=== PATIENT | male | born 1990 | race Caucasian/White ===

== ENCOUNTER 2023-08-24 09:59 | Emergency (ER) | payer OTHER, SELFPAY ==
--- NOTE | ~2023-08-24 | XR_ITS ---
EXAMINATION: XR CHEST 2 VIEWS CLINICAL INFORMATION: Chest pain. COMPARISON: None. TECHNIQUE: Frontal and lateral views of the chest were obtained. FINDINGS: The heart, great vessels, pulmonary vasculature and mediastinum are normal. The lungs show no focal infiltrate, effusion or pneumothorax. There is no acute osseous abnormality. XR/XR chest 2V IMPRESSION: No active cardiopulmonary disease.
[2023-08-24 10:07] VITALS: BP 149/95; BP 163/109; PULSE 70; PULSE 78; RESP 16; TEMP 36.6; O2SAT 95; BMI 45.2
--- NOTE | 2023-08-24 10:44 | ECG_ITS ---
Test Reason : CHEST PAIN Blood Pressure : / mmHG Vent. Rate : 060 BPM Atrial Rate : 060 BPM P-R Int : 186 ms QRS Dur : 100 ms QT Int : 432 ms P-R-T Axes : 021 -27 -30 degrees QTc Int : 432 ms Normal sinus rhythm Minimal voltage criteria for LVH, may be normal variant ( R in aVL ) T wave abnormality, consider anterolateral ischemia Abnormal ECG No previous ECGs available Referred By: Tanja Sandoval Electronically Signed By:DAYANARA HUFF MD
--- NOTE | 2023-08-24 10:47 | ED_ITS ---
HPI - Chest Pain General Chief Complaint: Chest Pain Stated Complaint: CP W/INSPIRATION THIS AM & SEVERAL X'S FOR MONTHS Time Seen by Provider: 08/24/23 10:32 Source: patient and RN notes reviewed Mode of arrival: ambulatory Limitations: no limitations History of Present Illness HPI narrative: This is a 33-year-old male, with a past medical history of hypertension, presenting to the emergency department via EMS from [facility] with complaints of 1 episode of chest pain which occurred this morning. Patient states that he did not sleep well overnight as his roommate was up during the night using the restroom. Patient states that he got out of bed and headed to the kitchen. He states that he was feeling overwhelmed as he is stressed about not being able to sleep over the last several days due to his roommate keeping him up at night and suddenly developed midsternal chest pain. He states that he was feeling a dry mouth and headache and mildly short of breath. Patient states that he laid down and then developed pain radiating into his right shoulder. Patient states that this episode of chest pain resolved after 1 hour. He states that he was given medication at [facility] which he believes helped his symptoms. He denies knowing what medication they had given him. He is feeling well now. Denies any recent travel, hospitalizations, surgeries, or swelling to his lower extremities. Denies history of blood clots. Denies cardiac medical problems, denies any family medical cardiac problems. Patient states that he has a history of similar chest pain over the last year states he notices this chest pain occurring when he is feeling overwhelmed. No other complaints or concerns at this time. MD complaint: chest pain Onset (ago): hour(s) Timing of current episode: episodic Prior episodes: Yes Pain location: substernal Pain radiation: right shoulder Quality: aching Relieving factors: medication-other (Unsure of what medication was given) Risk Factors Coronary artery disease risk factors: hypertension Related Data Allergies Allergy/AdvReac Type Severity Reaction Status Date / Time No Known Allergies Allergy Unverified 07/13/20 18:53 [No Known Allergies*] Review of Systems 2 Review of Systems: Yes all other systems are reviewed and are negative Constitutional: Constitutional: Reports as per [facility] Social History Social History Smoked in Last 30 Days: No Use of substances other than those prescribed or required for medical reasons: Yes Substance Use Type: Marijuana Advance Directives: No Advance Directives Information Provided: No Physical Exam 2 Vital Signs: Vital Signs: Last Vital Signs Temp 98.5 F 08/24/23 15:20 Pulse 62 08/24/23 15:20 Resp 12 08/24/23 15:20 BP 132/94 H 08/24/23 15:20 Pulse Ox 95 08/24/23 15:20 O2 Del Method Room Air 08/24/23 15:20 BMI result Body Mass Index 45.2 Const: General: cooperative, comfortable and no acute distress O rientation/consciousness: patient oriented x3 Limitations: no limitations HEENT: Head: Yes normal to inspection, Yes normocephalic and Yes atraumatic Ears: hearing grossly normal bilaterally General nose exam: Normal external nose present Face and sinus: Yes normal facial exam Mouth: Normal oral and palatal mucosa present, oropharynx normal and moist mucous membranes Throat: Yes posterior oropharynx normal Eyes: General: appearance normal, both eyes and all related structures E yelids: Yes eyelids normal Conjunctivae: conjunctivae normal Sclerae: s clerae normal Pupils: Equal, round and reactive pupils present EOM: EOMs intact bilaterally Neck: Neck: Yes normal visual inspection, Yes full ROM and Yes no lymphadenopathy Lymphatic: no lymphadenopathy noted Chest: Chest palpation & inspection: normal inspection of the chest Resp: Effort & Inspection: normal respiratory effort and able to speak in complete sentences Auscultation: clear to auscultation bilaterally, no crackles, no rales, no rhonchi and no wheezes Cardio: Rate: regular rate Rhythm: regular rhythm Heart sounds: S1 normal heart sound present and S2 normal heart sound present GI: Inspection: Yes normal to inspection Skin: General skin exam: no rashes or lesions noted Trauma: no lacerations or abrasions Wounds: no wounds Neuro: General: patient oriented x3 and moves all extremities Cranial nerves: Yes Equal, round and reactive pupils present Extrem: General: Yes normal to inspection Right upper extremity: normal to inspection Left upper extremity: normal to inspection Right lower extremity: normal to inspection Left lower extremity: normal to inspection Course Reevaluation(s) Reevaluation #1: EKG was performed, there is a biphasic T-wave in V2, V3. Concerning for Wellens syndrome. Will [facility] to contact [facility] as patient was told that he was given multiple medications, unclear which ones he was given. Patient remains to be chest pain free. Patient denies any cocaine use, states that he uses marijuana recreationally. Denies alcohol use. Time: 11:19 Reevaluation #2: Nurse made contact with Andreylian, patient did not receive any aspirin this morning. Received all at home medications. Time: 11:42 Reevaluation #3: Repeat troponin after 4 hours is 3. Discussed findings with Dr. Lester, who believes this is unlikely ACS. Will repeat EKG. Discussed with patient, he expresses that he did have palpitations about 15 minutes ago that lasted for several seconds and resolved on its own. Time: 15:54 Additional Reevaluation(s): 1649 - repeat EKG revealing similar appearing EKG, biphasic T-waves in V2, V3, V4. Discussed case with Dr. Lester, who recommends outpatient follow up. I discussed this with my attending physician, Dr. Bass. These findings may be due to LVH. Chest x-ray was not ordered initially, will add to work up. If chest x-ray is negative, pt ok to be d/c with strict return precautions. Chest x-ray negative, patient is chest pain-free. Given input from my attending physicians, and printing roller polisher, patient will be discharged with close follow-up with Cardiology. Unclear if this atypical chest pain is cardiac in nature or anxiety provoked. Pt had troponins x2 - and based on cardiology input can be followed up outpatiently. Advised to return if any new or worsening symptoms occur. Patient verbalizes good understanding of this. Patient will be discharged, transported back to [facility]. Medications Administered Discontinued Medications Generic Name Dose Route Start Last Admin Trade Name Casey PRN Reason Stop Dose Admin Aspirin 324 mg 08/24/23 12:16 08/24/23 12:28 Aspirin 81 Mg Tab.Chew PO 08/24/23 12:17 324 mg ONCE ONE Administration Medical Decision Making Medical Decision Making [facility] Narrative: This is a 33-year-old male, with a past medical history of hypertension, presenting to the emergency department for evaluation of chest pain which started this morning. On arrival, mildly hypertensive at 163/109, all other vital signs within normal limits. Patient is well-appearing. Patient states that this episode of chest pain lasted for about an hour. Reports that he has been overwhelmed as he has been unable to sleep over the last several days. He is currently at [facility] for suicidal ideations. Patient states that he is currently chest pain-free. He states that he has a history of similar symptoms in the past and states that typically when he is feeling overwhelmed he gets the symptoms. Plan: EKG, labs, chest x-ray Differential Diagnosis Differential Diagnoses: The differential diagnosis associated with the presentation includes ACS-unlikely, anxiety, panic attack, costochondritis, gastritis Admission/Observation Consideration of admission/observation: Escalation of care including admission/observation considered Escalation of care including admission observation was considered due to having chest pain. Consult Healthcare Provider Management of the patient was discussed with: Hospitalist and Photo Tech People Manager, Dr. Lester Lab Data MDM Lab Attestation statement: I reviewed the patient's lab results. No leukocytosis, stable H&H, negative troponin x2 08/24/23 11:23 08/24/23 11:23 Labs: Lab Results 08/24/23 08/24/23 08/24/23 Range/Units 11:23 15:17 15:20 WBC 7.2 (4.8-10.8) X10*3/uL RBC 4.81 (4.60-5.80) X10*6/uL Hgb 14.1 (14.0-18.0) g/dl Hct 41.6 L (42.0-52.0) % MCV 86.5 (80.0-98.0) fL MCH 29.3 (27.0-33.0) pg MCHC 33.9 (31.0-36.0) g/dl RDW 12.9 (11.0-16.0) % Plt Count 221 (160-400) X10*3/uL MPV 10.7 (9.4-12.4) fL Immature Gran % (Auto) 0.3 (0.0-0.4) % Neut % (Auto) 53.3 (45-73) % Lymph % (Auto) 35.4 (20-40) % Mobile % (Auto) 7.9 (2-11) % Eos % (Auto) 2.4 (0-4) % Baso % (Auto) 0.7 (0-2) % Lymph # (Auto) 2.5 (1.2-4.9) X10*3/uL Mobile # (Auto) 0.6 (0.1-1.2) X10*3/uL Eos # (Auto) 0.2 (0.0-0.4) X10*3/uL Baso # (Auto) 0.1 (0.0-0.2) X10*3/uL Abs Immat Gran (auto) 0.02 (0.00-0.03) X10*3/uL Absolute Neuts (auto) 3.8 (2.0-8.3) x10*3/uL Absolute Nucleated RBC 0.000 (0.0-0.012) X10*3/uL Nucleated RBC % (auto) 0.0 (0.0-0.2) /100WBC PT 12.4 (11.1-13.3) SEC INR 1.0 (0.9-1.1) APTT 23.8 L (26.0-36.4) SEC Sodium 137 (135-145) mmol/L Potassium 3.9 (3.3-5.1) mmol/L Chloride 103 (96-108) mmol/L Carbon Dioxide 23 (22-29) mmol/L Anion Gap 15 (12-20) BUN 12 (9-16) mg/dL Creatinine 0.69 (0.5-1.4) mg/dL Estim Creat Clear Calc 201.8 Estimated GFR > 60 Random Glucose 130 H (60-115) mg/dL Calcium 9.8 (8.4-10.2) mg/dL Total Bilirubin 0.6 (0.0-1.0) mg/dL Direct Bilirubin 0.2 (0.0-0.5) mg/dL AST 60 H (5-37) U/L ALT 42 H (0-40) U/L Alkaline Phosphatase 75 (39-117) U/L Troponin I High Sens 2.9 3.0 (<3.5-35.0) ng/L Total Protein 7.1 (6.5-8.0) g/dL Albumin 3.8 (3.5-5.0) g/dL Urine Opiates Screen Not Detected (Not Detect) Urine Fentanyl Screen Not Detected (Not Detect) Ur Barbiturates Screen Not Detected (Not Detect) Ur Phencyclidine Scrn Not Detected (Not Detect) Ur Amphetamines Screen Not Detected (Not Detect) U Benzodiazepines Scrn Not Detected (Not Detect) Urine Cocaine Screen Not Detected (Not Detect) U Marijuana (THC) Screen POSITIVE H (Not Detect) Independent Interpretation I performed an independent interpretation of an: EKG Interpretation: EKG performed at 11:06AM normal sinus rhythm with biphasic T-wave in V2, V3, and V4 concerning for Wellens syndrome. ME interval 186, QTC 432. Repeat EKG normal sinus rhythm at a ventricular rate of 63 beats per minute biphasic T-waves noted in V2 V3 V4. Similar appearing EKG from previous. Radiology Impression Discussion of test interpretation with radiology: I have reviewed the radiologist's reading. Radiologist Impression: [id number] [place] [id number] XRay Report Signed Patient: Awais Leija MR#: [id number] : 1990 Acct:[id number] Age/Sex: 33 / M ADM Date: 08/24/23 Loc: .ED Attending Dr: Ordering Physician: Tanja Sandoval Date of Service: 08/24/23 Procedure(s): XR chest 2V Accession Number(s): [id number] cc: Tanja Sandoval; Physician,Unknown ~ EXAMINATION: XR CHEST 2 VIEWS CLINICAL INFORMATION: Chest pain. COMPARISON: None. TECHNIQUE: Frontal and lateral views of the chest were obtained. FINDINGS: The heart, great vessels, pulmonary vasculature and mediastinum are normal. The lungs show no focal infiltrate, effusion or pneumothorax. There is no acute osseous abnormality. XR/XR chest 2V IMPRESSION: No active cardiopulmonary disease. Chronic Conditions Patient?s care impacted by: Hypertension Scores Heart Score History: -1- moderately suspicious ECG: -1- non specific repolarization disturbance Age: -0- < or = 45 Risk factory: -1- 1 or 2 risk factors Troponin: -0- < or = normal limit Score: 3 Risk: 1.7% Discharge Plan Discharge Clinical Impression: Atypical chest pain Patient Disposition: [facility]fer [facility] Transfer Details: [facility] Instructions: Chest Pain (ED) Additional Instructions: It is unclear what is causing you to have chest pain. You had some abnormality seen on her EKG which was reviewed by a printing roller polisher. Your lab work was reassuring. Your chest x-ray was normal. Please follow-up with printing roller polisher, call tomorrow to make an appointment. If any new or worsening symptoms occur including but not limited to chest pain, shortness breath, dizziness, lightheadedness, headaches, palpitations, please return to the emergency room for re-evaluation. Referrals: [facility] Cardiovascular Services [Provider Group] Interventions: Acute Care Transfer Worksheet (ED) Last Done: 08/24/23 19:00 Discharge Date/Time: 08/24/23 19:00
[2023-08-24 11:27] LABS: MANUAL DIFF FLAG NO
[2023-08-24 11:28] LABS: Basophils Absolute Auto 0.1 X10*3/uL (0.0-0.2); Basophils Percent Auto 0.7 % (0-2); Eosinophils Absolute Auto 0.2 X10*3/uL (0.0-0.4); Eosinophils Percent Auto 2.4 % (0-4); Hematocrit 41.6 % (42.0-52.0); Hemoglobin 14.1 g/dl (14.0-18.0); Imm Gran Abs Auto 0.02 X10*3/uL (0.00-0.03); Imm Gran Pct Auto 0.3 % (0.0-0.4); Lymphocytes Absolute Auto 2.5 X10*3/uL (1.2-4.9); Lymphocytes Percent Auto 35.4 % (20-40); Mean Corpuscular HGB Conc 33.9 g/dl (31.0-36.0); Mean Corpuscular Hemoglobin 29.3 pg (27.0-33.0); Mean Corpuscular Volume 86.5 fL (80.0-98.0); Mean Platelet Volume 10.7 fL (9.4-12.4); Monocytes Absolute Auto 0.6 X10*3/uL (0.1-1.2); Monocytes Percent Auto 7.9 % (2-11); Neutrophils Absolute Auto 3.8 x10*3/uL (2.0-8.3); Neutrophils Percent Auto 53.3 % (45-73); Platelet Count 221 X10*3/uL (160-400); Red Blood Count 4.81 X10*6/uL (4.60-5.80); Red Cell Distribution Width 12.9 % (11.0-16.0); White Blood Count 7.2 X10*3/uL (4.8-10.8)
--- NOTE | 2023-08-24 11:30 | PC.NURSE ---
pt a&o x4, pleasant, calm, and cooperative. pt sts he was having some chest pain this am that subsided before the pt arrived to the ED. pt also noted to have elevated BP. pt otherwise stable, appears well, talking in full complete sentences. rr even/unlabored. pt changed over to hospital attire, placed on bedside monitor, labs drawn, EKG obtained, IV placed. awaiting lab results. call dale within pt reach, plan of care ongoing.
[2023-08-24 11:34] LABS: Prothrombin Time 12.4 SEC (11.1-13.3)
[2023-08-24 11:41] LABS: Partial Thromboplastin Time 23.8 SEC (26.0-36.4)
[2023-08-24 11:50] LABS: Troponin-I High Sensitivity 2.9 ng/L (<3.5-35.0)
[2023-08-24 11:54] LABS: Anion Gap 15 (12-20)
[2023-08-24 11:59] LABS: Alanine Aminotransferase 42 U/L (0-40); Albumin Level 3.8 g/dL (3.5-5.0); Alkaline Phosphatase 75 U/L (39-117); Aspartate Amino Transferase 60 U/L (5-37); Bilirubin Direct 0.2 mg/dL (0.0-0.5); Bilirubin Total 0.6 mg/dL (0.0-1.0); Blood Urea Nitrogen 12 mg/dL (9-16); Calcium 9.8 mg/dL (8.4-10.2); Carbon Dioxide 23 mmol/L (22-29); Chloride 103 mmol/L (96-108); Creatinine Clr Calc Pharmacy 201.8; Estimated Glomerular Filt Rate > 60; Glucose Random 130 mg/dL (60-115); Potassium 3.9 mmol/L (3.3-5.1); Sodium 137 mmol/L (135-145); Total Protein 7.1 g/dL (6.5-8.0)
[2023-08-24] MEDS: Aspirin 81 MG TAB.CHEW 324 MG PO (12:28)
[2023-08-24 12:29] VITALS: PULSE 81; RESP 17
--- NOTE | 2023-08-24 13:48 | PC.NURSE ---
Addendum entered by Desiree Cassidy RN 08/24/23 13:52: provider aware Original Note: pt not aware he was unable to eat until given the 'ok' by provier. pt provided food by family, cooperative with staff and stopped eating when provided this information.
[2023-08-24 15:20] VITALS: BP 132/94; PULSE 62; RESP 12; TEMP 36.9; O2SAT 95
[2023-08-24 15:37] LABS: Amphetamine Screen Urine Not Detected (Not Detect); Barbiturates, Urine Not Detected (Not Detect); Benzodiazepines Screen Urine Not Detected (Not Detect); Cannabinoid Screen Urine POSITIVE (Not Detect); Cocaine Screen Urine Not Detected (Not Detect); Fentanyl, urine Not Detected (Not Detect); Opiate Screen Urine Not Detected (Not Detect); Phencyclidine Screen Urine Not Detected (Not Detect)
--- NOTE | 2023-08-24 15:56 | ECG_ITS ---
Test Reason : ABNORMAL EKG Blood Pressure : / mmHG Vent. Rate : 063 BPM Atrial Rate : 063 BPM P-R Int : 188 ms QRS Dur : 102 ms QT Int : 450 ms P-R-T Axes : 029 -25 -19 degrees QTc Int : 460 ms Normal sinus rhythm Minimal voltage criteria for LVH, may be normal variant ( R in aVL ) T wave abnormality, consider anterior ischemia Prolonged QT Abnormal ECG When compared with ECG of 24-AUG-2023 11:06, No significant change was found Referred By: Tanja Sandoval Electronically Signed By:DAYANARA HUFF MD
== END 2023-08-24 19:00 ==
PROVIDERS: Physician Assistant Medical; Emergency Provider Student in an Organized Health Care Education/Training Program
DX: R07.89 Other chest pain (principal); F43.9 Reaction to severe stress, unspecified; M25.511 Pain in right shoulder; I10 Essential (primary) hypertension; Z79.899 Other long term (current) drug therapy
CPT/HCPCS: 36415; 71046; 80048; 80076; 80307; 84484; 85025; 85610; 85730; 93005; 99285